=== PATIENT | female | born 1965 | race Asian ===

== ENCOUNTER 2018-11-03 09:30 | Day surgery (SDC) | payer MEDICAID ==
[~2018-11-03] VITALS: Ht 157.5 cm; Wt 61.7 kg
[2018-11-03] MEDS ORDERED: NO HOME MEDS (10:17)
[2018-11-03 10:21] VITALS: Ht 157.5 cm; Wt 61.7 kg
[2018-11-03 10:40] VITALS: BP 144/89; PULSE 68; RESP 18
[2018-11-03] MEDS ORDERED: FENTAnyl 50 MCG/ML VIAL ONE (11:19)
[2018-11-03] MEDS ORDERED: MIDAZOLAM 1 MG/ML 2 ML INJ ONE ×2 (11:19)
--- NOTE | 2018-11-03 14:28 | CONS ---
DATE OF ADMISSION: 11/03/2018 DATE OF CONSULTATION: PATIENT NAME: KYRIE MANCINI TYPE OF CONSULTATION: Preoperative gastroenterology. Dear Dr. Burks: I thank you very much for this kind referral. HISTORY OF PRESENT ILLNESS: Ms. Kyrie Mancini is a 53-year-old female patient who has been referred to me for further evaluation of rectal bleeding. The patient also has got abdominal pain. The wes ent had severe abdominal pain 10 days ago with rectal bleeding. The patient went to the emergency ro om and she had abdominal CT scan done and it was suspicious for colitis in the sigmoid colon. No pas t history of inflammatory bowel disease or colon neoplasm. The patient never had a colonoscopy in last 10 years. No upper abdominal pain. Not on nonsteroidal anti-inflammatory agents. No history of gallstones or liver disease. Not a hypertensive or diabetic. No heart disease, lung problem or kidney disease. Has history of hyperlipidemia. SOCIAL HISTORY: Nonsmoker. No alcohol abuse. FAMILY HISTORY: No family history of gastrointestinal tract neoplasm or inflammatory bowel disease. PHYSICAL EXAMINATION: GENERAL: She is 5 feet 2 inches tall and weighs 135 pounds. HEART: Normal heart sounds. LUNGS: Clear. ABDOMEN: Soft, no masses. Normal bowel sounds. NEUROLOGIC: Normal neurological exam. IMPRESSION: 1. Abdominal pain with acute rectal bleeding. 2. The patient went to the emergency room and she had abdominal CT scan done and she was noted to schilling ve colitis in the left colon. 3. The patient never had screening colonoscopy. 4. Hyperlipidemia. PLAN: Colonoscopy for further evaluation. The procedure and possible complications are well explained to the patient. She understands and cons ents to the procedure. I thank you once again. With warmest personal regards, Dictated By: GABBY CHANDLER/TRAV Conf#: [id number] DID#: [id number]
== END 2018-11-03 11:52 | disposition home or self-care (01) ==
LOC: GIL 09:30
PROVIDERS: ATTEND Internal Medicine Gastroenterology
DX: K64.8 Other hemorrhoids (principal); D12.5 Benign neoplasm of sigmoid colon
CPT/HCPCS: 45385; J2250; J3010; Z7610